=== PATIENT | female | born 1935 | race Caucasian/White ===

== ENCOUNTER 2021-01-02 15:52 | Emergency (ER) | payer MEDICARE, OTHER ==
[~2021-01-02] VITALS: Ht 172.7 cm; Wt 50.0 kg
[~2021-01-02 15:52] MED LIST: ALEN10TA10 PO; AMIO200T42 PO; Albuterol-Ipratropium Mdi INH; CALC1TAB68 PO; DIGO125T85 PO; ERTA1VIA4 IV; FLUT100B INH; POTA20TA6 PO; RISP0.5T62 PO
[2021-01-02 17:03] LABS: BASOPHILS % (AUTO) 0 % (0-1); EOSINOPHILS % (AUTO) 1 % (1-7); LYMPHOCYTES % (AUTO) 13 % (22-44); MD NO; MEAN CORPUSCULAR HEMOGLOBIN 29.2 pg (27.0-34.8); MEAN CORPUSCULAR HGB CONC 33.3 g/dL (32.4-35.8); MEAN PLATELET VOLUME 7.8 fL (7.4-10.4); MONOCYTES % (AUTO) 9 % (2-9); NEUTROPHILS % (AUTO) 78 % (42-75); PLATELET COUNT 341 x10^3/uL (130-400); RED BLOOD COUNT 3.72 x10^6/uL (3.82-5.3); RED CELL DISTRIBUTION WIDTH 16.4 % (9.6-15.2)
[2021-01-02 17:07] LABS: ANION GAP 4 mmol/L (5-15); CALCIUM 8.5 mg/dL (8.5-10.1); CHLORIDE 107 mmol/L (98-107); CREATININE 0.74 mg/dL (0.55-1.02)
--- NOTE | 2021-01-02 17:11 | NUR ---
[facility] clinical manager: from [facility] [phone] after hours: [phone]
[2021-01-02 17:45] LABS: MICROSCOPIC INDICATED
--- NOTE | 2021-01-02 18:51 | NUR ---
RECEIVED REPORT FROM BRANDYN RAM.
[2021-01-02] MEDS ORDERED: CEFTRIAXONE 1,000 MG IM ONE (19:00)
[2021-01-02] MEDS ORDERED: FOSFOMYCIN 3 GM PACKET PO ONE (19:00)
--- NOTE | 2021-01-02 19:11 | NUR ---
PEFORMED HOURLY ROUNDS. PT IN NAD. ATTACHED TO MONITORS. VSS. RAILS ENGAGED BED IN LOW POSITION, CALL LIGHT WITHIN REACH. NO ADDITIONAL NEEDS OR QUESTIONS AT THIS TIME. CURRENTLY SPEAKING TO PUBLIC [employer] OFFICE TO FIND OUT WHICH FACILITY PT IS GOING TO BE SENT BACK TO. CALLING [facility] [place] ON [address] [phone]. FACILITY DID NOT ANSWER MY CALL. LEFT A VOICEMAIL TOP REACH BACK.
[2021-01-02] MEDS ORDERED: CEFTRIAXONE 1,000 MG ONE (19:22)
[2021-01-02] MEDS ORDERED: FOSFOMYCIN 3 GM PACKET ONE (19:22)
--- NOTE | 2021-01-02 19:31 | NUR ---
PRECEPTOR RN: [facility] WITH [facility] IS ACCEPTING PT BACK TO FACILITY. DC PAPERWORK REVIEWED WITH HIM VERBALLY. PT RIDE TO BE ARRANGED BACK TO FACILITY.
--- NOTE | 2021-01-02 19:41 | NUR ---
TP RN: [facility] [employer] TRANSPORT SET UP FOR APROXIMATELY 1999.
[2021-01-02 19:58] VITALS: BP 120/54
== END 2021-01-02 20:29 | disposition home or self-care (01) ==
LOC: ED 20:23
DX: N30.00 Acute cystitis without hematuria (principal); R05 Cough; Z87.891 Personal history of nicotine dependence
CPT/HCPCS: 36415; 51700; 71045; 80048; 81001; 85025; 87040; 87077; 87086; 87186; 96372; 99284; J0696